=== PATIENT | male | born 1965 ===

== ENCOUNTER 2024-11-27 06:06 | Outpatient (RCR) | payer BC, SELFPAY | END 2024-11-27 23:59 | disposition home or self-care (01) | LOC: ROT 06:06 | DX: M65.4 Radial styloid tenosynovitis [de Quervain] (principal); Z73.6 Limitation of activities due to disability | CPT/HCPCS: 97010; 97140; 97166; 97535 ==

== ENCOUNTER 2025-01-01 06:54 | Outpatient (RCR) | payer BC, SELFPAY | END 2025-01-01 23:59 | disposition home or self-care (01) | LOC: ROT 06:54 | DX: M65.4 Radial styloid tenosynovitis [de Quervain] (principal); Z73.6 Limitation of activities due to disability | CPT/HCPCS: 97010; 97022; 97110; 97140; 97760 ==

== ENCOUNTER 2025-01-22 07:36 | Outpatient (RCR) | payer BC, SELFPAY | END 2025-01-22 23:59 | disposition home or self-care (01) | LOC: ROT 07:36 | DX: M65.4 Radial styloid tenosynovitis [de Quervain] (principal); Z73.6 Limitation of activities due to disability | CPT/HCPCS: 97010; 97110; 97140 ==